=== PATIENT | female | born 1935 | race Caucasian/White ===

== ENCOUNTER 2022-01-09 11:45 | Inpatient (IN) | payer OTHER ==
[~2022-01-09] VITALS: Ht 167.6 cm; Wt 50.5 kg
[2022-01-09] MEDS ORDERED: cloNIDine HCL 0.1 MG TAB PO ONE (12:00)
[2022-01-09 12:30] LABS: Basophils # (auto) 0.1 10 ^3/uL (0-0.2); Eosinophils # (auto) 0.1 10 ^3/uL (0-0.8); Eosinophils % (auto) 0.9 % (0.0-7.0); Hematocrit 40.3 % (36.0-46.0); Hemoglobin 13.2 g/dL (12.2-16.2); Lymphocytes # (auto) 1.1 10 ^3/uL (0.4-5.4); Lymphocytes % (auto) 19.2 % (10.0-50.0); Mean Corpuscular Hemoglobin 28.9 pg (28.0-32.0); Mean Corpuscular Hgb Conc. 32.7 g/dL (32.0-36.0); Mean Corpuscular Volume 88.3 fL (80.0-100.0); Monocytes # (auto) 0.3 10 ^3/uL (0-1.3); Monocytes % (auto) 5.6 % (0.0-12.0); Neutrophils # (auto) 4.3 10 ^3/uL (1.6-8.6); Neutrophils % (auto) 73.3 % (37.0-80.0); Nucleated Red Blood Cells % 0.1 %; Red Blood Cells 4.56 10^6/uL (4.0-5.20); Red Cell Distribution Width 14.9 % (11.8-14.3); White Blood Cell 5.9 10^3/uL (4.4-10.8)
[2022-01-09 12:41] LABS: Albumin 4.1 g/dL (3.4-5.0); Calcium 9.6 mg/dL (8.5-10.1); Magnesium 2.5 mg/dL (1.6-2.6); Potassium 3.4 mmol/L (3.5-5.1)
[2022-01-09 12:44] LABS: BUN/Creatinine Ratio 21.8; Bilirubin, Total 0.7 mg/dL (0.2-1.0)
[2022-01-09] MEDS ORDERED: FUROSEMIDE 40 MG/4 ML VIAL IV ONE (16:15)
[2022-01-09] MEDS ORDERED: LOSARTAN POTASSIUM 25 MG TAB PO ONE (17:15)
[2022-01-09] MEDS ORDERED: MORPHINE SULFATE INJECTION 2 MG/ML SYRG IV PRN (17:15)
[2022-01-09] MEDS ORDERED: LACTULOSE 20Gm/30ML SOLN PO PRN (17:15)
[2022-01-09] MEDS ORDERED: NITROGLYCERIN 0.4 MG SL TAB SL PRN (17:15)
[2022-01-09] MEDS ORDERED: DEXTROSE (50%) 50ML SYRG IV PRN (17:30)
[2022-01-09] MEDS ORDERED: ONDANSETRON HCL 4 MG/2 ML VIAL IV PRN (17:30)
[2022-01-09 18:18] VITALS: BP 155/89
[2022-01-09] MEDS: traMADol HCL 50 MG TAB PO PRN (18:46)
[2022-01-09] MEDS ORDERED: LEV25T PO (21:08)
[2022-01-09] MEDS ORDERED: SODI650T PO (21:08)
[2022-01-09] MEDS ORDERED: HYDR-4072 PO (21:08)
[2022-01-09] MEDS ORDERED: BACL10TA PO (21:08)
[2022-01-09] MEDS ORDERED: FURO20TA3 PO (21:08)
[2022-01-09] MEDS ORDERED: PANT40T PO (21:08)
[2022-01-09] MEDS ORDERED: PRAV20TA3 PO (21:08)
[2022-01-09] MEDS ORDERED: SUCR1TAB PO (21:08)
[2022-01-09] MEDS: SODIUM CHLOR 0.9% PF (SALINE LOCK) 10ML VIAL/SYR IV SCH (21:27)
[2022-01-09] MEDS: DOXYCYCLINE 100 MG TAB/CAP PO SCH (21:28)
[2022-01-09 21:33] VITALS: BP 176/100
[2022-01-09] MEDS: CARVEDILOL 3.125 MG TAB PO SCH (21:46)
[2022-01-10] MEDS ORDERED: hydrALAZINE HCL 20 MG/ML VL IV PRN (01:00)
[2022-01-10 04:47] VITALS: BP 132/68
[2022-01-10 06:18] LABS: Basophils # (auto) 0 10 ^3/uL (0-0.2); Basophils % (auto) 0.9 % (0.0-2.0); Eosinophils # (auto) 0.2 10 ^3/uL (0-0.8); Eosinophils % (auto) 3.6 % (0.0-7.0); Hematocrit 33.6 % (36.0-46.0); Hemoglobin 11.5 g/dL (12.2-16.2); Lymphocytes # (auto) 1.5 10 ^3/uL (0.4-5.4); Mean Corpuscular Hemoglobin 29.7 pg (28.0-32.0); Mean Corpuscular Hgb Conc. 34.2 g/dL (32.0-36.0); Mean Corpuscular Volume 86.9 fL (80.0-100.0); Monocytes # (auto) 0.3 10 ^3/uL (0-1.3); Monocytes % (auto) 7.3 % (0.0-12.0); Neutrophils # (auto) 2.4 10 ^3/uL (1.6-8.6); Neutrophils % (auto) 54.2 % (37.0-80.0); Nucleated Red Blood Cells % 0.1 %; Red Blood Cells 3.86 10^6/uL (4.0-5.20); Red Cell Distribution Width 14.8 % (11.8-14.3); White Blood Cell 4.4 10^3/uL (4.4-10.8)
[2022-01-10] MEDS: SODIUM CHLOR 0.9% PF (SALINE LOCK) 10ML VIAL/SYR IV SCH ×3 (06:21→22:17)
[2022-01-10 06:27] LABS: Potassium 3.2 mmol/L (3.5-5.1)
[2022-01-10 06:34] LABS: Albumin 3.4 g/dL (3.4-5.0); BUN/Creatinine Ratio 24.7; Bilirubin, Total 0.6 mg/dL (0.2-1.0); Calcium 9.1 mg/dL (8.5-10.1)
[2022-01-10 08:00] VITALS: BP 127/67
[2022-01-10] MEDS: POTASSIUM CHL 20 Meq TABLET PO SCH (09:53)
[2022-01-10] MEDS: ENOXAPARIN SOD 40 MG/0.4 ML SYRINGE SC SCH (09:56)
[2022-01-10] MEDS: DOXYCYCLINE 100 MG TAB/CAP PO SCH ×2 (09:56→22:14)
[2022-01-10] MEDS: ASPirin 81 mg TAB PO SCH (09:56)
[2022-01-10] MEDS: CARVEDILOL 3.125 MG TAB PO SCH ×2 (09:57→22:15)
[2022-01-10] MEDS: ENALAPRIL MALEATE 10 MG TAB PO SCH (09:58)
[2022-01-10] MEDS: FUROSEMIDE 40 MG/4 ML VIAL IV SCH (09:58)
[2022-01-10] MEDS: NITROGLYCERIN 0.2MG/HR TOPICAL PATCH TD SCH (09:59)
[2022-01-10] MEDS: ACETAMINOPHEN 500 MG TAB PO PRN ×2 (12:22→22:15)
[2022-01-10 13:00] VITALS: BP 90/43
[2022-01-10 16:00] VITALS: BP 125/64
[2022-01-10] MEDS ORDERED: metOLazone 5 MG TAB PO ONE (16:00)
[2022-01-10] MEDS: traMADol HCL 50 MG TAB PO PRN (18:45)
[2022-01-10] MEDS: POTASSIUM CHL 20MEQ/100ML 100 ML IV SCH ×2 (22:31→22:33)
[2022-01-11] MEDS: POTASSIUM CHL 20MEQ/100ML 100 ML IV SCH (01:39)
[2022-01-11 05:00] VITALS: BP 132/73
[2022-01-11] MEDS: SODIUM CHLOR 0.9% PF (SALINE LOCK) 10ML VIAL/SYR IV SCH ×3 (06:10→22:13)
[2022-01-11 06:39] LABS: Basophils # (auto) 0 10 ^3/uL (0-0.2); Basophils % (auto) 0.9 % (0.0-2.0); Eosinophils # (auto) 0.2 10 ^3/uL (0-0.8); Eosinophils % (auto) 4.1 % (0.0-7.0); Hematocrit 31.7 % (36.0-46.0); Hemoglobin 10.8 g/dL (12.2-16.2); Lymphocytes # (auto) 1.5 10 ^3/uL (0.4-5.4); Lymphocytes % (auto) 31.3 % (10.0-50.0); Mean Corpuscular Hemoglobin 29.9 pg (28.0-32.0); Mean Corpuscular Hgb Conc. 34.1 g/dL (32.0-36.0); Mean Corpuscular Volume 87.6 fL (80.0-100.0); Monocytes # (auto) 0.4 10 ^3/uL (0-1.3); Monocytes % (auto) 8.9 % (0.0-12.0); Neutrophils # (auto) 2.7 10 ^3/uL (1.6-8.6); Neutrophils % (auto) 54.8 % (37.0-80.0); Nucleated Red Blood Cells % 0.1 %; Red Blood Cells 3.62 10^6/uL (4.0-5.20); Red Cell Distribution Width 14.5 % (11.8-14.3); White Blood Cell 4.9 10^3/uL (4.4-10.8)
[2022-01-11 06:44] LABS: BUN/Creatinine Ratio 23.1; Calcium 8.4 mg/dL (8.5-10.1); Potassium 4.5 mmol/L (3.5-5.1)
[2022-01-11 08:46] VITALS: BP 138/65
[2022-01-11] MEDS: POTASSIUM CHL 20 Meq TABLET PO SCH (10:11)
[2022-01-11] MEDS: DOXYCYCLINE 100 MG TAB/CAP PO SCH ×2 (10:11→22:14)
[2022-01-11] MEDS: ASPirin 81 mg TAB PO SCH (10:11)
[2022-01-11] MEDS: FUROSEMIDE 40 MG/4 ML VIAL IV SCH (10:12)
[2022-01-11] MEDS: ENALAPRIL MALEATE 10 MG TAB PO SCH (10:13)
[2022-01-11] MEDS: ENOXAPARIN SOD 40 MG/0.4 ML SYRINGE SC SCH (10:13)
[2022-01-11] MEDS: CARVEDILOL 3.125 MG TAB PO SCH ×2 (10:14→22:14)
[2022-01-11] MEDS: NITROGLYCERIN 0.2MG/HR TOPICAL PATCH TD SCH (10:15)
[2022-01-11] MEDS: traMADol HCL 50 MG TAB PO PRN ×3 (10:27→22:15)
[2022-01-11 13:00] VITALS: BP 127/68
[2022-01-11] MEDS ORDERED: POTA10TA32 PO (14:54)
[2022-01-11] MEDS ORDERED: ASPI1CHW15 PO (14:54)
[2022-01-11] MEDS ORDERED: ENAL10TA13 PO (14:54)
[2022-01-11] MEDS ORDERED: FURO20TA3 PO (14:54)
[2022-01-11] MEDS ORDERED: DOX100T PO (14:54)
[2022-01-11] MEDS ORDERED: CAR3125T PO (14:54)
[2022-01-11 22:00] VITALS: BP 139/75
[2022-01-12 05:00] VITALS: BP 141/90
[2022-01-12] MEDS: traMADol HCL 50 MG TAB PO PRN (05:21)
[2022-01-12 06:16] LABS: Basophils # (auto) 0 10 ^3/uL (0-0.2); Basophils % (auto) 0.8 % (0.0-2.0); Eosinophils # (auto) 0.2 10 ^3/uL (0-0.8); Eosinophils % (auto) 4.1 % (0.0-7.0); Hemoglobin 11.2 g/dL (12.2-16.2); Lymphocytes # (auto) 1.9 10 ^3/uL (0.4-5.4); Lymphocytes % (auto) 38.8 % (10.0-50.0); Mean Corpuscular Hemoglobin 29.7 pg (28.0-32.0); Mean Corpuscular Volume 87.3 fL (80.0-100.0); Monocytes # (auto) 0.5 10 ^3/uL (0-1.3); Monocytes % (auto) 9.9 % (0.0-12.0); Neutrophils # (auto) 2.3 10 ^3/uL (1.6-8.6); Neutrophils % (auto) 46.4 % (37.0-80.0); Red Blood Cells 3.78 10^6/uL (4.0-5.20); Red Cell Distribution Width 14.6 % (11.8-14.3); White Blood Cell 4.9 10^3/uL (4.4-10.8)
[2022-01-12 06:23] LABS: Calcium 8.6 mg/dL (8.5-10.1); Potassium 4.5 mmol/L (3.5-5.1)
[2022-01-12] MEDS: SODIUM CHLOR 0.9% PF (SALINE LOCK) 10ML VIAL/SYR IV SCH (06:49)
[2022-01-12] MEDS ORDERED: LEVOTHYROXINE SODIUM 25 MCG TAB PO SCH (07:00)
[2022-01-12] MEDS: ASPirin 81 mg TAB PO SCH (08:18)
[2022-01-12] MEDS: ENALAPRIL MALEATE 10 MG TAB PO SCH (08:20)
[2022-01-12] MEDS: DOXYCYCLINE 100 MG TAB/CAP PO SCH (08:20)
[2022-01-12] MEDS: ENOXAPARIN SOD 40 MG/0.4 ML SYRINGE SC SCH (08:21)
[2022-01-12] MEDS: NITROGLYCERIN 0.2MG/HR TOPICAL PATCH TD SCH (08:22)
[2022-01-12] MEDS: CARVEDILOL 3.125 MG TAB PO SCH (08:23)
[2022-01-12 09:00] VITALS: BP 139/75
[2022-01-12] MEDS ORDERED: SODIUM CHLORIDE 0.9% 1,000 ML IV SCH (09:15)
[2022-01-12] MEDS ORDERED: POTASSIUM CHL 20 Meq TABLET PO SCH (10:00)
[2022-01-12] MEDS ORDERED: FUROSEMIDE 40 MG TAB PO SCH (10:00)
[2022-01-12] MEDS ORDERED: PANTOPRAZOLE 40 MG/10 ML VIAL INJ IV SCH (10:00)
[2022-01-12 11:26] VITALS: BP 128/78
[2022-01-12 13:00] VITALS: BP 129/75
[2022-01-12 15:07] VITALS: BP 129/70
== END 2022-01-12 17:07 | disposition home health service (06) | DRG 291 ==
LOC: ER 11:45 → TELE 17:01 → TELE-WESTW 18:12
PROVIDERS: ADMIT Internal Medicine; ATTEND Internal Medicine
DX: I13.0 Hypertensive heart and chronic kidney disease with heart failure and stage 1 through stage 4 chronic kidney disease, or unspecified chronic kidney disease (principal); N17.0 Acute kidney failure with tubular necrosis; J18.9 Pneumonia, unspecified organism; I50.43 Acute on chronic combined systolic (congestive) and diastolic (congestive) heart failure; J91.8 Pleural effusion in other conditions classified elsewhere; J96.11 Chronic respiratory failure with hypoxia; I95.9 Hypotension, unspecified; D63.1 Anemia in chronic kidney disease; E87.6 Hypokalemia; I25.10 Atherosclerotic heart disease of native coronary artery without angina pectoris; N18.30 Chronic kidney disease, stage 3 unspecified; I44.7 Left bundle-branch block, unspecified; R73.9 Hyperglycemia, unspecified; R54 Age-related physical debility; Z20.822 Contact with and (suspected) exposure to COVID-19; I16.0 Hypertensive urgency; Z90.710 Acquired absence of both cervix and uterus; Z99.81 Dependence on supplemental oxygen
CPT/HCPCS: 36415; 36600; 71045; 76775; 80048; 80053; 82306; 82805; 83036; 83735; 83880; 83970; 84100; 84443; 84484; 85025; 85379; 93005; 93306; 93970; 96374; 99291; C9113; G0378; J2405; J3480

== ENCOUNTER 2022-08-31 05:37 | Emergency (ER) | payer OTHER ==
[~2022-08-31] VITALS: Ht 170.2 cm; Wt 53.7 kg
[~2022-08-31 05:37] MED LIST: ASPI1CHW15 PO; CAR3125T PO; DOX100T PO; FURO20TA3 PO; HYDR-4072 PO; LEV25T PO; PANT40T PO; POTA10TA32 PO; PRAV20TA3 PO; SUCR1TAB PO
[2022-08-31] MEDS ORDERED: cloNIDine HCL 0.1 MG TAB PO ONE ×2 (06:45→17:45)
[2022-08-31 06:46] VITALS: BP 194/117
[2022-08-31] MEDS ORDERED: SODIUM CHLORIDE 0.9% 1,000 ML IV ONE (08:30)
[2022-08-31 08:46] LABS: Basophils # (auto) 0 10 ^3/uL (0-0.2); Basophils % (auto) 0.5 % (0.0-2.0); Eosinophils # (auto) 0.1 10 ^3/uL (0-0.8); Eosinophils % (auto) 1.4 % (0.0-7.0); Hemoglobin 11.5 g/dL (12.2-16.2); Lymphocytes # (auto) 0.9 10 ^3/uL (0.4-5.4); Lymphocytes % (auto) 11.8 % (10.0-50.0); Mean Corpuscular Hemoglobin 28.8 pg (28.0-32.0); Mean Corpuscular Volume 90.2 fL (80.0-100.0); Monocytes # (auto) 0.3 10 ^3/uL (0-1.3); Monocytes % (auto) 4.7 % (0.0-12.0); Neutrophils % (auto) 81.6 % (37.0-80.0); Red Blood Cells 3.99 10^6/uL (4.0-5.20); Red Cell Distribution Width 14.3 % (11.8-14.3); White Blood Cell 7.4 10^3/uL (4.4-10.8)
[2022-08-31 09:01] LABS: Albumin 4.1 g/dL (3.4-5.0)
[2022-08-31 09:08] LABS: BUN/Creatinine Ratio 17.4; Bilirubin, Total 0.4 mg/dL (0.2-1.0); Calcium 9.4 mg/dL (8.5-10.1); Magnesium 2.1 mg/dL (1.6-2.6); Total Protein 6.5 g/dL (6.4-8.2)
[2022-08-31 12:00] LABS: Urine Bacteria NONE SEEN /hpf (None Seen); Urine Blood Negative /uL (Negative); Urine Mucus FEW (None Seen); Urine Specific Gravity 1.016 (1.001-1.035); Urine WBC 2 /hpf (0 - 5)
[2022-08-31] MEDS ORDERED: SPIRONOLACTONE 25 MG TAB PO ONE (16:00)
[2022-08-31] MEDS ORDERED: FUROSEMIDE 40 MG/4 ML VIAL IV ONE (16:00)
[2022-08-31] MEDS ORDERED: SPIR25TA PO (16:37)
[2022-08-31] MEDS ORDERED: FURO1TAB33 PO (16:37)
[2022-08-31] MEDS ORDERED: ATEN-60 PO (16:37)
[2022-08-31] MEDS ORDERED: OLME20TA53 PO (16:37)
== END 2022-08-31 17:52 | disposition left against medical advice (07) ==
LOC: ER 05:37
DX: I13.0 Hypertensive heart and chronic kidney disease with heart failure and stage 1 through stage 4 chronic kidney disease, or unspecified chronic kidney disease (principal); N18.30 Chronic kidney disease, stage 3 unspecified; I50.9 Heart failure, unspecified; R94.31 Abnormal electrocardiogram [ECG] [EKG]; J81.1 Chronic pulmonary edema; Z20.822 Contact with and (suspected) exposure to COVID-19; Z90.49 Acquired absence of other specified parts of digestive tract; Z98.51 Tubal ligation status; Z87.891 Personal history of nicotine dependence
CPT/HCPCS: 36415; 71046; 80053; 81001; 83735; 83880; 84484; 85025; 85379; 87426; 87804; 93005; 96374; 99285; J1940

== ENCOUNTER 2022-10-24 16:23 | Emergency (ER) | payer OTHER ==
[~2022-10-24] VITALS: Ht 170.2 cm; Wt 51.7 kg
[~2022-10-24 16:23] MED LIST changes: +ATEN-60 PO; +FURO1TAB33 PO; +OLME20TA53 PO; +SPIR25TA PO
[2022-10-24] MEDS ORDERED: IPRATROPIUM BROM 0.5 MG/2.5ML INH SOL NEB ONE (20:15)
[2022-10-24] MEDS ORDERED: ALBUTEROL SULF 2.5 MG/0.5ML(0.5%) NEB SOLN NEB ONE (20:15)
[2022-10-24] MEDS ORDERED: FUROSEMIDE 20 MG TAB PO ONE (20:15)
[2022-10-24 20:39] LABS: Albumin 3.9 g/dL (3.4-5.0); Calcium 9.1 mg/dL (8.5-10.1); Potassium 4.4 mmol/L (3.5-5.1)
[2022-10-24 20:40] LABS: Basophils # (auto) 0 10 ^3/uL (0-0.2); Basophils % (auto) 0.8 % (0.0-2.0); Eosinophils # (auto) 0.1 10 ^3/uL (0-0.8); Eosinophils % (auto) 2.6 % (0.0-7.0); Hematocrit 34.5 % (36.0-46.0); Hemoglobin 11.5 g/dL (12.2-16.2); Lymphocytes # (auto) 1.1 10 ^3/uL (0.4-5.4); Lymphocytes % (auto) 19.4 % (10.0-50.0); Mean Corpuscular Hemoglobin 29.9 pg (28.0-32.0); Mean Corpuscular Hgb Conc. 33.3 g/dL (32.0-36.0); Mean Corpuscular Volume 89.7 fL (80.0-100.0); Monocytes # (auto) 0.3 10 ^3/uL (0-1.3); Monocytes % (auto) 6.1 % (0.0-12.0); Neutrophils # (auto) 3.8 10 ^3/uL (1.6-8.6); Neutrophils % (auto) 71.1 % (37.0-80.0); Nucleated Red Blood Cells % 0.1 %; Red Blood Cells 3.85 10^6/uL (4.0-5.20); Red Cell Distribution Width 14.6 % (11.8-14.3); White Blood Cell 5.4 10^3/uL (4.4-10.8)
[2022-10-24 20:42] LABS: BUN/Creatinine Ratio 21.4; Bilirubin, Total 0.5 mg/dL (0.2-1.0); Total Protein 7.2 g/dL (6.4-8.2)
[2022-10-24 20:53] LABS: INR 1.03 (0.9-1.15); Partial Thromboplastin Time 30.2 sec (24.6-33.4)
[2022-10-24] MEDS ORDERED: ALBUTEROL MEDNEB 2.5 mg/3ml NEB ONE (21:34)
[2022-10-25 02:13] VITALS: BP 178/98
[2022-10-25] MEDS ORDERED: FUROSEMIDE 40 MG/4 ML VIAL IV ONE (03:45)
[2022-10-25] MEDS ORDERED: cefTRIAXone 1GM/50ML D5W 50 ML IV ONE (03:45)
[2022-10-25] MEDS ORDERED: AZITHROMYCIN 500MG/ 250ML 250 ML IV ONE (03:45)
== END 2022-10-25 05:52 | disposition left against medical advice (07) ==
LOC: ER 16:23
DX: J18.9 Pneumonia, unspecified organism (principal); I11.0 Hypertensive heart disease with heart failure; I50.9 Heart failure, unspecified; R06.02 Shortness of breath; I25.10 Atherosclerotic heart disease of native coronary artery without angina pectoris; Z90.49 Acquired absence of other specified parts of digestive tract; Z90.710 Acquired absence of both cervix and uterus; Z90.89 Acquired absence of other organs; Z87.891 Personal history of nicotine dependence
CPT/HCPCS: 36415; 71045; 80053; 83605; 83690; 83880; 84484; 85025; 85610; 85730; 93005; 94640; 99285; J7644

== ENCOUNTER 2022-10-31 12:23 | Inpatient (IN) | payer OTHER ==
[~2022-10-31] VITALS: Ht 170.2 cm; Wt 54.2 kg
[2022-10-31 14:04] LABS: Basophils # (auto) 0.1 10 ^3/uL (0-0.2); Basophils % (auto) 1.3 % (0.0-2.0); Eosinophils # (auto) 0.1 10 ^3/uL (0-0.8); Eosinophils % (auto) 2.8 % (0.0-7.0); Hematocrit 35.1 % (36.0-46.0); Hemoglobin 11.4 g/dL (12.2-16.2); Lymphocytes # (auto) 0.7 10 ^3/uL (0.4-5.4); Lymphocytes % (auto) 15.5 % (10.0-50.0); Mean Corpuscular Hemoglobin 29.1 pg (28.0-32.0); Mean Corpuscular Hgb Conc. 32.4 g/dL (32.0-36.0); Mean Corpuscular Volume 89.9 fL (80.0-100.0); Monocytes # (auto) 0.3 10 ^3/uL (0-1.3); Monocytes % (auto) 5.5 % (0.0-12.0); Neutrophils # (auto) 3.5 10 ^3/uL (1.6-8.6); Neutrophils % (auto) 74.9 % (37.0-80.0); Nucleated Red Blood Cells % 0.1 %; Red Cell Distribution Width 14.5 % (11.8-14.3); White Blood Cell 4.7 10^3/uL (4.4-10.8)
[2022-10-31 15:18] LABS: BUN/Creatinine Ratio 17.7; Calcium 9.5 mg/dL (8.5-10.1); Potassium 4.1 mmol/L (3.5-5.1)
[2022-10-31 15:20] LABS: Bilirubin, Total 0.6 mg/dL (0.2-1.0); Total Protein 7.1 g/dL (6.4-8.2)
[2022-10-31] MEDS ORDERED: cefTRIAXone 1GM/50ML D5W 50 ML IV ONE (16:30)
[2022-10-31] MEDS ORDERED: AZITHROMYCIN 500MG/ 250ML 250 ML IV ONE (16:30)
[2022-10-31] MEDS ORDERED: FUROSEMIDE 40 MG/4 ML VIAL IV ONE (16:30)
[2022-10-31] MEDS ORDERED: NITROGLYCERIN 0.4 MG SL TAB SL PRN (18:45)
[2022-10-31] MEDS ORDERED: ACETAMINOPHEN 325 MG TAB PO PRN (18:45)
[2022-10-31] MEDS ORDERED: MORPHINE SULFATE INJ 2 MG/ml SYRG IV PRN ×2 (18:45)
[2022-10-31] MEDS ORDERED: hydrALAZINE HCL 20 MG/ML VL IV PRN (19:00)
[2022-10-31] MEDS ORDERED: PANTOPRAZOLE 40 MG/10 ML VIAL INJ IV ONE (19:15)
[2022-10-31] MEDS ORDERED: IOHEXOL 350 MG/ML 100ML IJ ONE (20:15)
[2022-10-31 20:23] LABS: Cholesterol 174 mg/dL (< 200)
[2022-10-31 20:25] LABS: HDL Cholesterol 43 mg/dL (40-59); Triglycerides 182 mg/dL (< 150)
[2022-10-31 20:26] LABS: LDL Cholesterol 107 mg/dL (< 100)
[2022-10-31] MEDS ORDERED: CARVEDILOL 3.125 MG TAB PO SCH (22:00)
[2022-11-01 05:00] LABS: Basophils # (auto) 0.1 10 ^3/uL (0-0.2); Basophils % (auto) 1.1 % (0.0-2.0); Eosinophils # (auto) 0.1 10 ^3/uL (0-0.8); Eosinophils % (auto) 3.1 % (0.0-7.0); Hematocrit 33.2 % (36.0-46.0); Lymphocytes # (auto) 1.1 10 ^3/uL (0.4-5.4); Mean Corpuscular Hemoglobin 29.5 pg (28.0-32.0); Mean Corpuscular Hgb Conc. 33.2 g/dL (32.0-36.0); Mean Corpuscular Volume 88.8 fL (80.0-100.0); Monocytes # (auto) 0.4 10 ^3/uL (0-1.3); Monocytes % (auto) 9.1 % (0.0-12.0); Neutrophils % (auto) 62.7 % (37.0-80.0); Red Blood Cells 3.74 10^6/uL (4.0-5.20); Red Cell Distribution Width 14.5 % (11.8-14.3); White Blood Cell 4.8 10^3/uL (4.4-10.8)
[2022-11-01 05:22] LABS: Potassium 4.1 mmol/L (3.5-5.1)
[2022-11-01 05:29] LABS: Albumin 3.9 g/dL (3.4-5.0); BUN/Creatinine Ratio 17.3; Bilirubin, Total 0.6 mg/dL (0.2-1.0); Calcium 9.2 mg/dL (8.5-10.1); Total Protein 6.6 g/dL (6.4-8.2)
[2022-11-01] MEDS ORDERED: cefTRIAXone 1GM/50ML D5W 50 ML IV SCH (09:00)
[2022-11-01] MEDS ORDERED: PANTOPRAZOLE 40 MG/10 ML VIAL INJ IV SCH (10:00)
[2022-11-01] MEDS ORDERED: SPIRONOLACTONE 25 MG TAB PO SCH (10:00)
[2022-11-01] MEDS ORDERED: AZITHROMYCIN 500MG/ 250ML 250 ML IV SCH (10:00)
[2022-11-01] MEDS ORDERED: POTASSIUM CHL 10 Meq TABLET PO SCH (10:00)
[2022-11-01] MEDS ORDERED: FUROSEMIDE 20 MG TAB PO SCH (10:00)
[2022-11-01] MEDS ORDERED: FUROSEMIDE 20 MG/2 ML VIAL IV SCH (10:00)
[2022-11-01] MEDS: SODIUM CHLORIDE 0.9% 1,000 ML IV SCH ×2 (11:34→11:37)
[2022-11-01] MEDS: ATENOLOL 25 MG TAB PO SCH ×2 (11:36→22:47)
[2022-11-01] MEDS: LEVOTHYROXINE SODIUM 25 MCG TAB PO SCH (12:03)
[2022-11-01] MEDS: ASPirin-EC 81 mg tab PO SCH (12:03)
[2022-11-01] MEDS: SUCRALFATE 1 GM TAB PO SCH ×2 (12:03→17:29)
[2022-11-01] MEDS: LOSARTAN POTASSIUM 50 MG TAB PO SCH (12:03)
[2022-11-01] MEDS: PRAVASTATIN SODIUM 20 MG TAB PO SCH (12:04)
[2022-11-01 20:00] VITALS: BP 170/97
[2022-11-01 23:33] VITALS: BP 170/91
[2022-11-01] MEDS: HYDROcodone-ACET 5/325MG TAB PO PRN (23:49)
[2022-11-02] MEDS ORDERED: DOCU100C10 PO (01:05)
[2022-11-02 02:00] VITALS: BP 146/71
[2022-11-02 05:33] VITALS: BP 126/66
[2022-11-02] MEDS: SUCRALFATE 1 GM TAB PO SCH (06:10)
[2022-11-02 07:55] VITALS: BP 139/81
[2022-11-02 08:00] VITALS: BP 139/81
[2022-11-02] MEDS: HYDROcodone-ACET 5/325MG TAB PO PRN (08:22)
[2022-11-02] MEDS: LOSARTAN POTASSIUM 50 MG TAB PO SCH (10:43)
[2022-11-02] MEDS: ASPirin-EC 81 mg tab PO SCH (10:43)
[2022-11-02] MEDS: PRAVASTATIN SODIUM 20 MG TAB PO SCH (10:43)
[2022-11-02] MEDS: LEVOTHYROXINE SODIUM 25 MCG TAB PO SCH (10:44)
[2022-11-02 12:10] VITALS: BP 136/62
[2022-11-02] MEDS ORDERED: OLME20TA53 PO (15:14)
[2022-11-02] MEDS ORDERED: FURO1TAB33 PO (15:14)
[2022-11-02 16:10] VITALS: BP 139/81
== END 2022-11-02 16:37 | disposition home or self-care (01) | DRG 291 ==
LOC: EDBD 12:23 → ER 12:23 → TELE 18:55 → TELE-EAST 11-01 21:28
PROVIDERS: ADMIT Registered Nurse; ATTEND Hospitalist
DX: I13.0 Hypertensive heart and chronic kidney disease with heart failure and stage 1 through stage 4 chronic kidney disease, or unspecified chronic kidney disease (principal); I50.23 Acute on chronic systolic (congestive) heart failure; J18.9 Pneumonia, unspecified organism; I16.1 Hypertensive emergency; N17.9 Acute kidney failure, unspecified; J44.0 Chronic obstructive pulmonary disease with (acute) lower respiratory infection; Z20.822 Contact with and (suspected) exposure to COVID-19; E03.9 Hypothyroidism, unspecified; N18.31 Chronic kidney disease, stage 3a; I25.10 Atherosclerotic heart disease of native coronary artery without angina pectoris
CPT/HCPCS: 36415; 70450; 70496; 71045; 71275; 80053; 80061; 83036; 83880; 84443; 84484; 85025; 85379; 87040; 87205; 87426; 93005; 93306; 93970; 97163; C9113; G0378; J0696

== ENCOUNTER 2023-07-11 08:34 | Emergency (ER) | payer OTHER ==
[~2023-07-11] VITALS: Ht 170.2 cm; Wt 63.0 kg
[~2023-07-11 08:34] MED LIST changes: +ASPI-736 PO; -ASPI1CHW15 PO; -CAR3125T PO; +DOCU-265 PO; -DOX100T PO; -FURO20TA3 PO; -POTA10TA32 PO; -SPIR25TA PO
[2023-07-11 12:57] VITALS: BP 156/102; PULSE 86; RESP 18; TEMP 97.7; O2SAT 98
[2023-07-11] MEDS ORDERED: HYDROcodone-ACET 5/325MG TAB PO ONE (13:15)
[2023-07-11] MEDS ORDERED: LIDO5CRE14 EX (14:08)
== END 2023-07-11 14:11 | disposition home or self-care (01) ==
LOC: ER 08:34
DX: S22.41XA Multiple fractures of ribs, right side, initial encounter for closed fracture (principal); W01.0XXA Fall on same level from slipping, tripping and stumbling without subsequent striking against object, initial encounter; Y93.89 Activity, other specified; Y92.89 Other specified places as the place of occurrence of the external cause; Y99.8 Other external cause status
CPT/HCPCS: 71111; 93005